=== PATIENT | female | born 1935 | race Caucasian/White ===

== ENCOUNTER 2018-12-24 09:03 | Day surgery (SDC) | payer BC ==
[2018-12-24 11:03] LABS: WHITE BLOOD COUNT 4.7 10^3/ul (4.8-10.8)
[2018-12-24 11:03] LABS: ADD MAN DIFF? NO; BASOPHILS % 0.6 % (0.0-2.0); EOSINOPHILS # 0.1 10^3/ul (0.0-0.5); EOSINOPHILS % 1.9 % (0.0-7.0); HEMOGLOBIN 12.3 g/dl (12.0-16.0); LYMPHOCYTES # 1.8 10^3/ul (0.8-2.9); LYMPHOCYTES % 37.3 % (15.0-51.0); MEAN CORPUSCULAR HEMOGLOBIN 28.5 pg (29.0-33.0); MEAN CORPUSCULAR HGB CONC 33.2 g/dl (32.0-37.0); MEAN CORPUSCULAR VOLUME 85.8 fl (82.0-101.0); MEAN PLATELET VOLUME 10.8 fl (7.4-10.4); MONOCYTE # 0.5 10^3/ul (0.3-0.9); MONOCYTES % 10.9 % (0.0-11.0); NEUTROPHIL # 2.3 10^3/ul (1.6-7.5); NEUTROPHILS % 48.9 % (39.0-77.0); PLATELET COUNT 206 10^3/UL (140-415); RED BLOOD COUNT 4.31 10^6/ul (4.20-5.40)
[2018-12-24 11:21] LABS: ANION GAP 5 (5-13); CALCIUM 9.4 mg/dl (8.4-10.2); CARBON DIOXIDE 30 mmol/L (21-31); CHLORIDE 100 mmol/L (97-110); CREATININE 0.89 mg/dl (0.44-1.00); POTASSIUM 3.9 mmol/L (3.5-5.1); SODIUM 135 mmol/L (135-144)
[2018-12-24 11:32] LABS: BLOOD UREA NITROGEN 24 mg/dl (7-20)
[2018-12-24 11:35] LABS: GLUCOSE 236 mg/dl (70-220)
[2018-12-24] MEDS ORDERED: MIDAZOLAM 1 MG/ML 2 ML INJ (11:50)
[2018-12-24] MEDS: BUPIVACAINE 0.5% (SDV) 30 ML INJ (11:56)
[2018-12-24] MEDS ORDERED: hydrALAzine 20 MG INJ IV (12:00)
[2018-12-24] MEDS ORDERED: LABETALOL HCL 20MG INJ IV (12:00)
[2018-12-24] MEDS ORDERED: hydrALAzine 20 MG INJ (12:02)
[2018-12-24] MEDS ORDERED: FENTAnyl 50 MCG/ML VIAL (12:13)
[2018-12-24] MEDS ORDERED: CEFAZOLIN 1 GM INJ (12:37)
[2018-12-24] MEDS: HYDROmorphONE 1 MG/5 ML IV SYRINGE IV ×2 (13:25→13:43)
== END 2018-12-24 14:50 | disposition home or self-care (01) ==
LOC: SDS 09:03
DX: M20.012 Mallet finger of left finger(s) (principal); M15.1 Heberden's nodes (with arthropathy); I11.0 Hypertensive heart disease with heart failure; I50.9 Heart failure, unspecified; E11.9 Type 2 diabetes mellitus without complications; Z79.4 Long term (current) use of insulin; E03.9 Hypothyroidism, unspecified; Z86.73 Personal history of transient ischemic attack (TIA), and cerebral infarction without residual deficits; E78.5 Hyperlipidemia, unspecified
CPT/HCPCS: 11730; 71045; 73130-LT; 80048; 82962; 85025; 88304